=== PATIENT | male | born 1990 | race American Indian/Alaskan Native ===

== ENCOUNTER 2020-09-14 22:36 | Emergency (ER) | payer SELFPAY ==
[2020-09-14 22:50] VITALS: BP 152/104
[2020-09-14] MEDS ORDERED: CALCIUM CHLORIDE 1,000 MG/10 ML SYRINGE IV ONE (23:12)
[2020-09-14] MEDS ORDERED: SODIUM CHLORIDE IRRI 500 ML 500 ML IR ONE (23:12)
[2020-09-14] MEDS ORDERED: LIDOCAINE (2%) 20 MG/1 ML VIAL 20 ML MDV INFILTRATI STA (23:15)
[2020-09-14] MEDS ORDERED: HYDROGEN PEROXIDE 118 ML SOLUTION TP ONE (23:16)
[2020-09-14] MEDS ORDERED: SODIUM CHLORIDE 0.9% IRR 500 ML BOTTLE IR ONE (23:16)
--- NOTE | 2020-09-14 23:18 | Emergency Department Report ---
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 Reports no chest pain, palpitation hemoptysis, hematemesis, hematochezia. Complaint: head injury -: Sudden Mechanism of Injury: work related injury Location: frontal Loss of Consciousness: no Previous Trauma to this Area: No Place: home Radiation: none Severity: mild Quality: dull Consistency: constant Provoking factors: none known Other Injuries: none Associated Symptoms: denies: confusion, amnesia, repetitive questioning, syncope, tingling, neck pain - Related Data Allergies/Adverse reactions: Allergies Allergy/AdvReac Type Severity Reaction Status Date / Time No Known Allergies Allergy Unverified 09/14/20 22:53 ED Review of Systems ROS: Stated complaint: CUT ON FOREHEAD Other details as noted in HPI Comment: All other systems reviewed and negative ED Past Medical Hx - Past Medical History Previous Medical History?: No - Surgical History Past Surgical History?: No - Social History Smoking Status: Current Every Day Smoker Substance Use Type: None ED Physical Exam - General Limitations: No Limitations General appearance: alert, in no apparent distress - Head Head exam: Present: atraumatic, normocephalic - Eye Eye exam: Present: normal appearance, PERRL, EOMI - ENT ENT exam: Present: mucous membranes moist - Neck Neck exam: Present: normal inspection - Respiratory Respiratory exam: Present: normal lung sounds bilaterally. Absent: respiratory distress - Cardiovascular Cardiovascular Exam: Present: regular rate, normal rhythm. Absent: systolic murmur, diastolic murmur, rubs, gallop - GI/Abdominal GI/Abdominal exam: Present: soft, normal bowel sounds - Rectal Rectal exam: Present: deferred - Extremities Exam Extremities exam: Present: normal inspection - Back Exam Back exam: Present: normal inspection - Neurological Exam Neurological exam: Present: alert, oriented X3 - Psychiatric Psychiatric exam: Present: normal affect, normal mood - Skin Skin exam: Present: warm, dry, intact, normal color. Absent: rash ED Course Vital Signs 09/14/20 22:44 Temperature 98 F Pulse Rate 102 H Respiratory 16 Rate Blood Pressure 152/104 O2 Sat by Pulse 100 Oximetry - Procedure Description Procedures done: Area prepped and draped in sterile fashion this is achieved with 2% lidocaine with epinephrine 3 marie were placed in simple fashion for wound closed with good approximation procedure tolerated well estimated blood loss less than 2 cc Critical care attestation.: If time is entered above; I have spent that time in minutes in the direct care of this critically ill patient, excluding procedure time. ED Disposition Clinical Impression: Head injury due to trauma, Scalp laceration Disposition: DC-01 TO HOME OR SELFCARE Is pt being admited?: No Does the pt Need Aspirin: No Condition: Stable Instructions: Sutures, Baker, or Adhesive Wound Closure, Head Injury, Adult Additional Instructions: Please keep wound clean and dry. Please wound evaluation for staple removal in 5 days Referrals: [facility]IMARY [facility] [Primary Care Provider] - 3-5 Days [facility] [Provider Group] - 3-5 Days
== END 2020-09-15 00:14 | disposition home or self-care (01) ==
LOC: ED 22:36
DX: S01.01XA Laceration without foreign body of scalp, initial encounter (principal); S09.90XA Unspecified injury of head, initial encounter; F17.200 Nicotine dependence, unspecified, uncomplicated; X58.XXXA Exposure to other specified factors, initial encounter; Y93.89 Activity, other specified; Y92.009 Unspecified place in unspecified non-institutional (private) residence as the place of occurrence of the external cause; Y99.0 Civilian activity done for income or pay
CPT/HCPCS: 99282

== ENCOUNTER 2021-05-28 05:05 | Emergency (ER) | payer SELFPAY ==
--- NOTE | 2021-05-28 05:48 | Emergency Department Report ---
<ESDRAS DILLARD - Last Filed: 05/28/21 05:46> ED General Adult HPI - General Stated complaint: UNRESPONSIVE Time Seen by Provider: 05/28/21 05:08 - History of Present Illness Initial comments: Patient is a 30-year-old F Citizen Of [place] male was brought in by his for being poorly responsive. States they went out earlier this evening and were drinking but the patient seems to be more intoxicated than she would expect from what she witnessed him drinking. Stated he had 3 shots and 1 additional drink. Patient unresponsive to the point where she threw water on him he did not wake up. - Related Data Allergies Allergy/AdvReac Type Severity Reaction Status Date / Time No Known Allergies Allergy Unverified 09/14/20 22:53 ED Review of Systems Comment: All other systems reviewed and negative ED Past Medical Hx - Social History Smoking Status: Current Every Day Smoker Substance Use Type: None ED Physical Exam - General General appearance: alert, in no apparent distress, obtunded, other (Patient will moan and open his eyes to sternal rubbing otherwise the patient is unconscious and snoring) - Head Head exam: Present: atraumatic, normocephalic - Eye Eye exam: Present: normal appearance - ENT ENT exam: Present: normal orophraynx, mucous membranes moist - Neck Neck exam: Present: normal inspection - Respiratory Respiratory exam: Present: normal lung sounds bilaterally. Absent: respiratory distress, wheezes, rales, rhonchi - Cardiovascular Cardiovascular Exam: Present: regular rate, normal rhythm, normal heart sounds. Absent: systolic murmur, diastolic murmur, rubs, gallop - GI/Abdominal GI/Abdominal exam: Present: soft, normal bowel sounds. Absent: distended, tenderness, guarding, rebound - Rectal Rectal exam: Present: deferred - Extremities Exam Extremities exam: Present: normal inspection - Back Exam Back exam: Present: normal inspection - Neurological Exam Neurological exam: Present: alert, altered - Psychiatric Psychiatric exam: Present: normal affect, normal mood - Skin Skin exam: Present: warm, dry, intact, normal color. Absent: rash ED Disposition Clinical Impression: Alcohol intoxication Disposition: HOME / SELF CARE / HOMELESS Condition: Stable Instructions: Alcohol Intoxication, [id number] Referrals: PRIMARY CARE, [Referring] - 3-5 Days [facility] [Provider Group] - 3-5 Days <JAMES MAY Last Filed: 05/28/21 09:53> ED Review of Systems ROS: Stated complaint: UNRESPONSIVE Other details as noted in HPI ED Course Vital Signs 05/28/21 05/28/21 05/28/21 06:20 08:31 08:32 Temperature 97.7 F Pulse Rate 84 79 Respiratory 16 18 18 Rate Blood Pressure 115/76 O2 Sat by Pulse 100 77 L 97 Oximetry - Reevaluation(s) Reevaluation #1: 05/28/21 09:52 Patient is currently awake and oriented x3. Patient ambulated to bathroom without assistance. Gait is normal. Will discharge at this time. ED Medical Decision Making - Lab Data Result diagrams: 05/28/21 05:14 05/28/21 05:14 Critical care attestation.: If time is entered above; I have spent that time in minutes in the direct care of this critically ill patient, excluding procedure time. ED Disposition Is pt being admited?: No Time of Disposition: 09:53
[2021-05-28 05:49] LABS: Basophils % (Auto) 0.3 % (0.0-1.8); Eosinophils # (Auto) 0.1 K/mm3 (0.0-0.4); Eosinophils % (Auto) 0.7 % (0.0-4.3); Hematocrit 44.4 % (35.5-45.6); Lymphocytes # (Auto) 1.8 K/mm3 (1.2-5.4); Lymphocytes % (Auto) 21.5 % (13.4-35.0); Mean Corpuscular HGB Conc 34 % (32-34); Mean Corpuscular Volume 97 fl (84-94); Monocytes # (Auto) 0.4 K/mm3 (0.0-0.8); Monocytes % (Auto) 4.4 % (0.0-7.3); Platelet Count 297 K/mm3 (140-440); Red Blood Count 4.58 M/mm3 (3.65-5.03); Red Cell Distribution Width 12.5 % (13.2-15.2)
[2021-05-28 06:09] LABS: BUN/Creatinine Ratio 12; Blood Urea Nitrogen 13 mg/dL (9-20); Calcium 9.3 mg/dL (8.4-10.2); Hemolysis Index 3
[2021-05-28 10:04] VITALS: BP 122/86
== END 2021-05-28 10:04 | disposition home or self-care (01) ==
LOC: ED 05:05
DX: F10.929 Alcohol use, unspecified with intoxication, unspecified (principal); F17.200 Nicotine dependence, unspecified, uncomplicated
CPT/HCPCS: 36415; 80048; 80320; 82962; 85025; G0480